=== PATIENT | female | born 1955 | race African-American/Black ===

== ENCOUNTER 2025-04-25 11:03 | Emergency (ER) | payer MEDICARE ==
[~2025-04-25] VITALS: Ht 162.6 cm; Wt 75.0 kg
[2025-04-25 11:10] VITALS: O2SAT 99
[2025-04-25 11:33] LABS: BASOPHILS % 0.5 % (0.0-2.0); EOSINOPHILS % 4.0 % (0.0-5.0); HEMATOCRIT. 37.4 % (36.0-48.0); HEMOGLOBIN. 12.1 g/dL (12.0-16.0); LYMPHOCYTES % 39.5 % (20.0-50.0); MEAN PLATELET VOLUME 7.8 fl (7.4-10.4); MONOCYTES % 7.1 % (2.0-8.0); NEUTROPHILS % 48.9 % (40.0-76.0); PLATELET 328 x1000/uL (130-400); RED BLOOD CELL COUNT 5.12 mill/uL (4.2-5.4); RED CELL DISTRIBUTION WIDTH 16.0 % (11.6-14.6)
[2025-04-25 11:48] LABS: CREATININE 0.8 mg/dL (0.6-1.0)
[2025-04-25 11:49] LABS: INR 0.9; TROPONIN I HIGH SENSITIVITY < 4 ng/L (3.0-34)
[2025-04-25 11:50] LABS: ASPARTATE AMINOTRANSFERASE 20 IU/L (<34); UREA NITROGEN BLOOD 12 mg/dL (9-23)
[2025-04-25 11:51] LABS: BILIRUBIN DIRECT 0.1 mg/dL (<=3.0)
[2025-04-25 11:52] LABS: BILIRUBIN TOTAL 0.5 mg/dL (0.1-1.0); PROTEIN TOTAL 8.2 g/dL (6.0-8.3)
[2025-04-25] MEDS ORDERED: HEPARIN 25,000 UNITS PREMIX 250 ML IV SCH (12:15)
[2025-04-25] MEDS ORDERED: HEPARIN 5000 UNITS/ML VIAL IV ONE (12:15)
[2025-04-25 14:56] LABS: TROPONIN I HIGH SENSITIVITY 5 ng/L (3.0-34)
[2025-04-25 16:29] VITALS: BP 129/82; PULSE 80; RESP 16; TEMP 36.7; O2SAT 99
== END 2025-04-25 16:30 | disposition home or self-care (01) ==
LOC: ER 11:03
DX: R07.89 Other chest pain (principal); E78.00 Pure hypercholesterolemia, unspecified; I10 Essential (primary) hypertension; Z98.890 Other specified postprocedural states; Z90.710 Acquired absence of both cervix and uterus
CPT/HCPCS: 36415; 71045; 80048; 80076; 84484; 85025; 93005; 99285